=== PATIENT | male | born 1960 | race Caucasian/White ===

== ENCOUNTER 2019-11-21 19:29 | Emergency (ER) | payer OTHER ==
[~2019-11-21] VITALS: Ht 170.2 cm; Wt 77.1 kg
== END 2019-11-21 21:31 | disposition home or self-care (01) ==
LOC: ER 19:29
DX: S39.012A Strain of muscle, fascia and tendon of lower back, initial encounter (principal); X50.0XXA Overexertion from strenuous movement or load, initial encounter; Y93.B9 Activity, other involving muscle strengthening exercises; Y92.39 Other specified sports and athletic area as the place of occurrence of the external cause; Y99.8 Other external cause status

== ENCOUNTER 2020-11-03 23:33 | Emergency (ER) | payer OTHER ==
[~2020-11-03] VITALS: Ht 170.2 cm; Wt 73.9 kg
[2020-11-04] MEDS ORDERED: ORPHENADRINE C100 MG PO (01:48)
[2020-11-04] MEDS ORDERED: KETO10TA2 PO (01:48)
== END 2020-11-04 02:39 | disposition home or self-care (01) ==
LOC: ER 23:33
DX: S39.012A Strain of muscle, fascia and tendon of lower back, initial encounter (principal); X50.0XXA Overexertion from strenuous movement or load, initial encounter; Y93.89 Activity, other specified; Y92.89 Other specified places as the place of occurrence of the external cause; Y99.8 Other external cause status